=== PATIENT | male | born 1960 | race African-American/Black ===

== ENCOUNTER 2022-04-02 10:47 | Emergency (ER) | payer BC ==
[~2022-04-02] VITALS: Ht 180.3 cm; Wt 88.0 kg
[2022-04-02] MEDS ORDERED: KETOROLAC 60MG/2ML VIAL IM ONE (12:00)
[2022-04-02] MEDS ORDERED: CYCLOBENZAPRINE 10MG TABLET PO ONE (12:00)
[2022-04-02] MEDS ORDERED: CYCL25PO15 MT ×2 (13:32)
[2022-04-02] MEDS ORDERED: CYCL10TA21 MT (13:35)
[2022-04-02 14:08] VITALS: BP 128/73
== END 2022-04-02 14:10 | disposition home or self-care (01) ==
LOC: ER 10:47
DX: M25.511 Pain in right shoulder (principal); M54.2 Cervicalgia; E11.9 Type 2 diabetes mellitus without complications; I10 Essential (primary) hypertension; V43.52XA Car driver injured in collision with other type car in traffic accident, initial encounter; Y93.89 Activity, other specified; Y92.410 Unspecified street and highway as the place of occurrence of the external cause; Z88.6 Allergy status to analgesic agent
CPT/HCPCS: 73030; 96372; 99283; J1885